=== PATIENT | female | born 1970 | race Caucasian/White ===

== ENCOUNTER 2016-06-17 08:22 | Emergency (ER) | payer BC ==
[2016-06-17 08:57] VITALS: BP 134/59
--- NOTE | 2016-06-17 09:39 | UC ---
Throat Pain/Nasal Kirby HPI - HPI Summary HPI Summary: 46 yo female with sorethroat and fatigue x 2 days Hurts to swallow taking liquids ok no n/v/d no cp or sob - History of Current Complaint Chief Complaint: UCGeneralIllness Stated Complaint: SORE THROAT/EARS Time Seen by Provider: 06/17/16 09:27 Hx Obtained From: Patient Hx Last Menstrual Period: 06/06/16 Onset/Duration: Gradual Onset, Lasting Days Severity: Moderate Pain Intensity: 6 - while swallowing Pain Scale Used: 0-10 Numeric Cough: None - Allergies/Home Medications Allergies/Adverse Reactions: Allergies Allergy/AdvReac Type Severity Reaction Status Date / Time Penicillins Allergy Mild Hives Verified 06/17/16 08:34 Bee Venom Allergy Difficulty Verified 06/17/16 08:34 Breathing Home Medications: Home Medications Acetaminophen [Acetaminophen Extra Stren] 1,000 mg PO Q6H PRN 06/17/16 [History Confirmed 06/17/16] Epinephrine [Epipen 2-Gurwinder] 0.3 mg IM SEE INSTRUCTIONS PRN 06/17/16 [History Confirmed 06/17/16] Ibuprofen TAB* [Advil TAB*] 600 mg PO Q6H PRN 06/17/16 [History Confirmed ] Omeprazole CAP* [Prilosec CAP* 20 MG] 20 mg PO DAILY 06/17/16 [History Confirmed 06/17/16] PMH/Surg Hx/FS Hx/Imm Hx Previously Healthy: Yes - Surgical History Surgical History: Yes Surgery Procedure, Year, and Place: Tubal Ligation, 2009, [place]; D&C, 2008 2009 , [place]; Appendectomy, ~2002, [place] - Family History Known Family History: Positive: Hypertension - Social History Alcohol Use: Rare Substance Use Type: None Smoking Status (MU): Heavy Every Day Tobacco Smoker Type: Cigarettes Amount Used/How Often: 1 PPD Length of Time of Smoking/Using Tobacco: 29 Years Have You Smoked in the Last Year: Yes Household Exposure Type: Cigarettes - Immunization History Most Recent Influenza Vaccination: Not the 2015/2016 Season Review of Systems Constitutional: Fatigue Skin: Negative Eyes: Negative ENT: Sore Throat Respiratory: Negative Cardiovascular: Negative Gastrointestinal: Negative Genitourinary: Negative Motor: Negative Neurovascular: Negative Musculoskeletal: Negative Neurological: Negative Psychological: Negative All Other Systems Reviewed And Are Negative: Yes Physical Exam Triage Information Reviewed: Yes Appearance: Well-Appearing, No Pain Distress, Well-Nourished Vital Signs: Initial Vital Signs Temp 98 F 06/17/16 08:31 Pulse 86 06/17/16 08:31 Resp 16 06/17/16 08:31 BP 134/59 06/17/16 08:31 Pulse Ox 98 06/17/16 08:31 Vital Signs Reviewed: Yes Eyes: Positive: Conjunctiva Clear ENT: Positive: Hearing grossly normal, Pharyngeal erythema, TMs normal, Tonsillar swelling. Negative: Nasal congestion, Nasal drainage, Trismus, Muffled/hoarse voice Dental: Negative: Gross Decay/Caries @, Dental Fracture @, Abscess @ Neck: Positive: Supple, Enlarged Nodes @ - ant cervical Respiratory: Positive: Lungs clear, Normal breath sounds, No respiratory distress Cardiovascular: Positive: RRR, No Murmur. Negative: Tachycardia, Bradycardia Musculoskeletal: Positive: ROM Intact, No Edema Neurological: Positive: Alert Psychological Exam: Normal Skin Exam: Normal Throat Pain/Nasal Course/Dx - Differential Dx/Diagnosis Provider Diagnoses: acute tonsillitis Discharge - Discharge Plan Condition: Stable Disposition: HOME Prescriptions: Cephalexin CAP* [Keflex CAP*] 500 mg PO BID #20 cap Ondansetron TAB* [Zofran Tab*] 4 mg PO Q6H PRN #20 tab PRN Reason: Nausea Patient Education Materials: Tonsillitis (ED) Forms: *Work Release Referrals: Non Staff,Doctor [Primary Care Provider] - Additional Instructions: recheck in 4 days if not better...sooner for worsening symptoms
== END 2016-06-17 09:44 | disposition home or self-care (01) ==
LOC: UCCORT 08:22
DX: J03.90 Acute tonsillitis, unspecified (principal); Z88.0 Allergy status to penicillin; F17.210 Nicotine dependence, cigarettes, uncomplicated
CPT/HCPCS: 99212; G0463

== ENCOUNTER 2017-06-20 08:38 | Emergency (ER) | payer BC ==
[2017-06-20 08:55] VITALS: BP 135/74
--- NOTE | 2017-06-20 09:06 | UC ---
HPI Febrile Illness - HPI Summary HPI Summary: 47 year old female with flu like illness. c/o cough, congestion, body aches, and subjective fever x 2 days. cough x 2 weeks and keeping her up. the body aches started 2 days ago . no SOB. No CP. Non productive cough [ End ] - History of Current Complaint Chief Complaint: UCGeneralIllness Time Seen by Provider: 06/20/17 08:59 Hx Obtained From: Patient Hx Last Menstrual Period: 05/30/17 Timing: Constant Pain Intensity: 6 - Allergy/Home Medications Allergies/Adverse Reactions: Allergies Allergy/AdvReac Type Severity Reaction Status Date / Time bee venom protein (honey bee) Allergy Difficulty Verified 06/20/17 08:51 Breathing Penicillins Allergy Hives Verified 06/20/17 08:51 Home Medications: Home Medications D-Methorphan/PE/Acetaminophen [Day Time Cold-Flu Liquid] 1 liq PO ONCE 06/20/17 [History Confirmed 06/20/17] PMH/Surg Hx/FS Hx/Imm Hx Previously Healthy: Yes - Surgical History Surgical History: Yes Surgery Procedure, Year, and Place: appendectomy,2 D&C,Hystoscopy, tubal ligation - Family History Known Family History: Positive: Hypertension - Social History Occupation: Employed Full-time Alcohol Use: Rare Substance Use Type: None Smoking Status (MU): Light Every Day Tobacco Smoker Type: Cigarettes Amount Used/How Often: 1/2 PPD Length of Time of Smoking/Using Tobacco: ~ 20 plus Have You Smoked in the Last Year: Yes Household Exposure Type: Cigarettes - Immunization History Most Recent Influenza Vaccination: 02/28/13 Review of Systems Constitutional: Fever, Chills, Fatigue ENT: Nasal Discharge Respiratory: Cough Musculoskeletal: Myalgia Is Patient Immunocompromised?: No All Other Systems Reviewed And Are Negative: Yes Physical Exam Triage Information Reviewed: Yes Appearance: Well-Appearing, No Pain Distress, Well-Nourished Vital Signs: Initial Vital Signs Temp 99.8 F 06/20/17 08:50 Pulse 97 06/20/17 08:50 Resp 18 06/20/17 08:50 BP 135/74 06/20/17 08:50 Pulse Ox 98 06/20/17 08:50 Vital Signs Reviewed: Yes Eye Exam: Normal ENT Exam: Normal Dental Exam: Normal Neck exam: Normal Neck: Positive: 1 Respiratory Exam: Normal Cardiovascular Exam: Normal Musculoskeletal Exam: Normal Neurological Exam: Normal Psychological Exam: Normal Skin Exam: Normal Course/Dx - Course Course Of Treatment: neg flu - Febrile Illness Differential Diagnoses: Viremia - Diagnoses Clinic Provider Diagnoses: Viral illness/URI Discharge - Discharge Plan Condition: Good Disposition: HOME Prescriptions: Codeine Phosphate/Guaifenesin [Cheratussin AC Syrup] 5 ml PO QID PRN #120 ml MDD 20 PRN Reason: Cough Patient Education Materials: Upper Respiratory Infection (ED) Referrals: Celestino Tee MD [Primary Care Provider] - 3 Days Additional Instructions: You had a negative flu test today .
== END 2017-06-20 09:27 | disposition home or self-care (01) ==
LOC: UCCORT 08:38
DX: B34.9 Viral infection, unspecified (principal); B06.9 Rubella without complication; Z72.0 Tobacco use
CPT/HCPCS: 87502; 99212; G0463

== ENCOUNTER 2017-07-30 17:32 | Emergency (ER) | payer BC ==
--- NOTE | 2017-07-30 17:46 | UC ---
Throat Pain/Nasal Kirby HPI - HPI Summary HPI Summary: daughter has strep through mother now has body aches, sore throat subjective fever - History of Current Complaint Chief Complaint: UCRespiratory Stated Complaint: EAR PAIN, SORE THROAT Time Seen by Provider: 07/30/17 17:35 Hx Obtained From: Patient Hx Last Menstrual Period: 05/30/17 ?: No Onset/Duration: Sudden Onset, Lasting Days - 1, Still Present Severity: Moderate Pain Intensity: 5 Pain Scale Used: 0-10 Numeric Cough: None Associated Signs & Symptoms: Positive: Sinus Discomfort, Fever - Allergies/Home Medications Allergies/Adverse Reactions: Allergies Allergy/AdvReac Type Severity Reaction Status Date / Time bee venom protein (honey bee) Allergy Difficulty Verified 07/30/17 17:48 Breathing Penicillins Allergy Hives Verified 07/30/17 17:48 PMH/Surg Hx/FS Hx/Imm Hx Previously Healthy: No GI/ History: Gastroesophageal Reflux - Surgical History Surgical History: Yes Surgery Procedure, Year, and Place: appendectomy,2 D&C,Hystoscopy, tubal ligation - Family History Known Family History: Positive: Hypertension - Social History Occupation: Employed Full-time Lives: With Family Alcohol Use: Rare Substance Use Type: None Smoking Status (MU): Light Every Day Tobacco Smoker Type: Cigarettes Amount Used/How Often: 1/2 PPD Length of Time of Smoking/Using Tobacco: ~ 20 plus Have You Smoked in the Last Year: Yes Household Exposure Type: Cigarettes Cessation Counseling: Counseled 3+Min - 10 Min - Immunization History Most Recent Influenza Vaccination: 02/28/13 Review of Systems Constitutional: Chills, Fatigue Skin: Negative Eyes: Negative ENT: Sore Throat Respiratory: Negative Cardiovascular: Negative Gastrointestinal: Negative Genitourinary: Negative Motor: Negative Neurovascular: Negative Musculoskeletal: Arthralgia Neurological: Headache Psychological: Negative Is Patient Immunocompromised?: No All Other Systems Reviewed And Are Negative: Yes Physical Exam Triage Information Reviewed: Yes Appearance: Well-Appearing, No Pain Distress, Well-Nourished Vital Signs Reviewed: Yes Eye Exam: Normal Eyes: Positive: Conjunctiva Clear ENT Exam: Normal ENT: Positive: Normal ENT inspection, Hearing grossly normal, Pharynx normal, TMs normal, Uvula midline. Negative: Nasal congestion, Nasal drainage, Tonsillar swelling, Tonsillar exudate, Trismus, Muffled voice, Hoarse voice, Dental tenderness, Sinus tenderness Dental Exam: Normal Neck exam: Normal Neck: Positive: Supple, Nontender, No Lymphadenopathy Respiratory Exam: Normal Respiratory: Positive: Chest non-tender, Lungs clear, Normal breath sounds, No respiratory distress Cardiovascular Exam: Normal Cardiovascular: Positive: RRR, No Murmur, Pulses Normal, Brisk Capillary Refill Musculoskeletal Exam: Normal Musculoskeletal: Positive: Strength Intact, ROM Intact, No Edema Neurological Exam: Normal Neurological: Positive: Alert, Muscle Tone Normal Psychological Exam: Normal Skin Exam: Normal Diagnostics - Laboratory Diagnostic Studies Completed/Ordered: RST (-), Influenza A/b (-) Throat Pain/Nasal Course/Dx - Course Assessment/Plan: tylenol, ibuprofen, increase fluids, start A/B if sx fail to resolve or worsen - Differential Dx/Diagnosis Provider Diagnoses: Pharyngitis Discharge - Discharge Plan Condition: Stable Disposition: HOME Prescriptions: Azithromycin TAB* [Zithromax TAB (Z-CANDIDA) 250 mg #6 tabs] 2 tab PO .TODAY, THEN 1 DAILY #1 candida Patient Education Materials: Pharyngitis (ED) Referrals: Celestino Tee MD [Primary Care Provider] - If Needed
[2017-07-30 17:48] VITALS: BP 131/71
== END 2017-07-30 18:25 | disposition home or self-care (01) ==
LOC: UCCORT 17:32
DX: J02.9 Acute pharyngitis, unspecified (principal); F17.210 Nicotine dependence, cigarettes, uncomplicated
CPT/HCPCS: 87502; 87651; 99212; G0463

== ENCOUNTER 2018-04-22 08:37 | Emergency (ER) | payer BC ==
[2018-04-22 08:56] VITALS: BP 127/76
[2018-04-22] MEDS ORDERED: Ketorolac INJ* 60 MG/2 ML VIAL IM ONE (09:04)
--- NOTE | 2018-04-22 09:48 | UC ---
Headache HPI - HPI Summary HPI Summary: headache x 5 days pain is sever 8 out of 10, constant, no radiation worse with light, and activates, nothing makes it better + nausea and vomiting . mild abdominal pain - History Of Current Complaint Chief Complaint: UCHeadache Stated Complaint: MULTANI,UPSET STOMACH Time Seen by Provider: 04/22/18 08:52 Hx Obtained From: Patient Hx Last Menstrual Period: n/a ?: No Onset/Duration: Gradual Onset, Lasting Days - 5, Still Present Onset Of Symptoms: Gradual Initially Headache Was: Severe Pain Intensity: 10 Timing: Constant Character: Throbbing Location of Headache: Diffuse Aggravating Factor(s): Exertion, Bright Lights Allevating Factor(s): Nothing Associated Signs And Symptoms: Positive: Nausea, Vomiting. Negative: Dizziness , Seizure, Sinus Pressure, Fever, Neck Pain, Neck Stiffness, Decreased LOC, Visual Changes - Allergies/Home Medications Allergies/Adverse Reactions: Allergies Allergy/AdvReac Type Severity Reaction Status Date / Time bee venom protein (honey bee) Allergy Difficulty Verified 04/22/18 08:53 Breathing Penicillins Allergy Hives Verified 04/22/18 08:53 PMH/Surg Hx/FS Hx/Imm Hx Previously Healthy: Yes - Surgical History Surgical History: Yes Surgery Procedure, Year, and Place: appendectomy,2 D&C,Hystoscopy, tubal ligation - Family History Known Family History: Positive: Hypertension - Social History Alcohol Use: None Substance Use Type: None Smoking Status (MU): Light Every Day Tobacco Smoker Type: Cigarettes Amount Used/How Often: 1/2 PPD Length of Time of Smoking/Using Tobacco: ~ 20 plus Have You Smoked in the Last Year: Yes Household Exposure Type: Cigarettes - Immunization History Most Recent Influenza Vaccination: 02/28/13 Review of Systems All Other Systems Reviewed And Are Negative: Yes Constitutional: Positive: Negative Skin: Positive: Negative Eyes: Positive: Negative, Photophobia ENT: Positive: Negative Respiratory: Positive: Negative Cardiovascular: Positive: Negative Gastrointestinal: Positive: Negative Neurological: Positive: Headache Is Patient Immunocompromised?: No Physical Exam Triage Information Reviewed: Yes Appearance: Pain Distress, Obese Vital Signs: Initial Vital Signs Temp 97.8 F 04/22/18 08:51 Pulse 85 04/22/18 08:51 Resp 16 04/22/18 08:51 BP 127/76 04/22/18 08:51 Pulse Ox 98 04/22/18 08:51 Vital Signs Reviewed: Yes Eyes: Positive: Conjunctiva Clear ENT: Positive: Normal ENT inspection, Hearing grossly normal, Pharynx normal Neck: Positive: Supple, Nontender, No Lymphadenopathy Respiratory: Positive: Chest non-tender, Lungs clear, Normal breath sounds, No respiratory distress Cardiovascular: Positive: RRR, No Murmur, Pulses Normal Skin Exam: Normal UC Physical Exam Vital Signs On Initial Exam: Initial Vitals Temp Pulse Resp BP Pulse Ox 97.8 F 85 16 127/76 98 04/22/18 08:51 04/22/18 08:51 04/22/18 08:51 04/22/18 08:51 04/22/18 08:51 - Neurological Exam Neurological: Normal, Sensory/Motor Intact, Alert, Oriented to Person Place, Time, CN Intact II-III, Reflexes Intact, Normal Gait, Speech Normal Headache Course/Dx - Differential Dx/Diagnosis Provider Diagnosis: Headache Discharge - Sign-Out/Discharge Documenting (check all that apply): Patient Departure All imaging exams completed and their final reports reviewed: No Studies - Discharge Plan Condition: Stable Disposition: HOME Prescriptions: Ketorolac TAB * [Toradol TAB *] 10 mg PO Q8H PRN #15 tab PRN Reason: Headache Ondansetron ODT TAB* [Zofran 4 MG Odt TAB*] 8 mg PO Q8H PRN #9 tab.odt PRN Reason: Nausea/Vomiting Patient Education Materials: Acute Headache (DC) Forms: *Work Release Referrals: Celestino Tee MD [Primary Care Provider] - 5 Days - Billing Disposition and Condition Condition: STABLE Disposition: Home
== END 2018-04-22 09:59 | disposition home or self-care (01) ==
LOC: UCCORT 08:37
DX: R51 Headache (principal); Z88.0 Allergy status to penicillin
CPT/HCPCS: 96372; 99212; G0463; J1885

== ENCOUNTER 2018-05-01 08:16 | Emergency (ER) | payer BC ==
[2018-05-01 08:33] VITALS: BP 136/72
[2018-05-01] MEDS ORDERED: Meclizine TAB* 12.5 MG PO ONE (08:34)
--- NOTE | 2018-05-01 08:47 | UC ---
Dizzy HPI HPI Summary: Pt presents with c/o sudden on set of room spinning, multani, dizziness, nausea that began this morning up on waking. Pt was seen here 9 days ago for "terrible MULTANI" with photophobia, nausea with no known injury or hx of migraines. Pt states that MULTANI previous to today's visit improved but did not completely "go away". - History Of Current Complaint Chief Complaint: UCGeneralIllness Stated Complaint: DIZZINESS, LIGHTHEADED Time Seen by Provider: 05/01/18 08:32 Hx Obtained From: Patient Hx Last Menstrual Period: n/a ?: No Onset/Duration: Sudden Onset - this morning Timing: Constant Severity Initially: Severe Severity Currently: Severe Pain Intensity: 0 Character: Head Spinning, Room Spinning, Weak, Dizzy Aggravating Factor(s): Exertion, Position Change, Change In Head Position Alleviating Factor(s): Nothing Associated Signs And Symptoms: Positive: Nausea - Risk Factors Cardiac Risk Factors: Negative CVA Risk Factor: Negative - Allergies/Home Medications Allergies/Adverse Reactions: Allergies Allergy/AdvReac Type Severity Reaction Status Date / Time bee venom protein (honey bee) Allergy Difficulty Verified 05/01/18 08:25 Breathing Penicillins Allergy Hives Verified 05/01/18 08:25 Home Medications: Home Medications Atenolol TAB* [Tenormin TAB* 25 MG] 25 mg PO DAILY 05/01/18 [History Confirmed 05/01/18] Hydrochlorothiazide TAB* [Hydrodiuril TAB*] 12.5 mg PO DAILY 05/01/18 [History Confirmed 05/01/18] PMH/Surg Hx/FS Hx/Imm Hx Previously Healthy: Yes - Surgical History Surgical History: Yes Surgery Procedure, Year, and Place: appendectomy,2 D&C,Hystoscopy, tubal ligation - Family History Known Family History: Positive: Hypertension - Social History Occupation: Employed Full-time Lives: With Family Alcohol Use: None Substance Use Type: None Smoking Status (MU): Light Every Day Tobacco Smoker Type: Cigarettes Amount Used/How Often: 1/2 PPD Length of Time of Smoking/Using Tobacco: ~ 20 plus Have You Smoked in the Last Year: Yes Household Exposure Type: Cigarettes - Immunization History Most Recent Influenza Vaccination: 02/28/13 Review of Systems All Other Systems Reviewed And Are Negative: Yes Constitutional: Positive: Negative Skin: Positive: Negative Eyes: Positive: Photophobia ENT: Positive: Negative Respiratory: Positive: Negative Cardiovascular: Positive: Negative Gastrointestinal: Positive: Negative Genitourinary: Positive: Negative Motor: Positive: Negative Neurovascular: Positive: Negative Musculoskeletal: Positive: Negative Neurological: Positive: Headache, Other - dizziness, room spinning Psychological: Positive: Negative Is Patient Immunocompromised?: No Physical Exam Triage Information Reviewed: Yes Appearance: Ill-Appearing Vital Signs: Initial Vital Signs Temp 97.3 F 05/01/18 08:26 Pulse 85 05/01/18 08:26 Resp 18 05/01/18 08:26 BP 136/72 05/01/18 08:26 Pulse Ox 97 05/01/18 08:26 Vital Signs Reviewed: Yes Eye Exam: Normal, Other - PERRLA ENT: Positive: TM bulging - bilateral Dental Exam: Normal Neck exam: Normal Respiratory Exam: Normal Cardiovascular Exam: Normal Musculoskeletal Exam: Normal Musculoskeletal: Positive: Strength Intact, ROM Intact, No Edema Neurological: Positive: Alert, Other: - 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 Psychological Exam: Normal Psychological: Positive: Normal Response To Family Skin Exam: Normal Dizzy Course/Dx - Course Course Of Treatment: Pt was recommended to go to ER. Pt verbalized understanding and agreed to plan of care. - Differential Dx/Diagnosis Differential Diagnosis/HQI/PQRI: Benign Paroxysmal Positional Vertigo, CVA, Labyrinthitis Provider Diagnosis: Vertigo - Physician Notifications Discussed Patient Care With: Juancarlos Leavitt MD - accepted pt Time Discussed With Above Provider: 09:45 Instructed by Provider To: MD Will See In ED Discharge - Sign-Out/Discharge Documenting (check all that apply): Patient Departure All imaging exams completed and their final reports reviewed: No Studies - Discharge Plan Condition: Stable Disposition: HOME-RECOMMEND TO ED Patient Education Materials: Dizziness (ED), Serous Otitis Media (ED) Referrals: Celestino Tee MD [Primary Care Provider] - As Soon As Possible Additional Instructions: PLEASE GO DIRECTLY TO THE CLOSEST EMERGENCY ROOM SOON POSSIBLE. - Billing Disposition and Condition Condition: STABLE Disposition: Home-Recommend to ED - Attestation Statements Provider Attestation: Per institutional requirements, I have reviewed the chart, however, I was not consulted specifically or made aware of this patient by the midlevel provider. I did not personally evaluate, interact with , or disposition this patient.
== END 2018-05-01 08:53 | disposition home health service (06) ==
LOC: UCCORT 08:16
DX: R42 Dizziness and giddiness (principal); Z88.0 Allergy status to penicillin
CPT/HCPCS: 99212; G0463

== ENCOUNTER 2019-01-29 14:19 | Emergency (ER) | payer BC ==
[2019-01-29 14:27] VITALS: BP 140/75
[2019-01-29] MEDS ORDERED: Famotidine TAB* 20 MG PO ONE (14:39)
[2019-01-29] MEDS ORDERED: predniSONE TAB* 20 MG PO ONE (14:39)
[2019-01-29] MEDS ORDERED: diPHENhydraMINE PO* 25 MG PO ONE (14:39)
--- NOTE | 2019-01-29 14:40 | UC ---
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-- - History of Current Complaint Chief Complaint: UCAllergicReaction Stated Complaint: BEE STING Time Seen by Provider: 01/29/19 14:31 Hx Obtained From: Patient Hx Last Menstrual Period: 2016 ?: No Onset/Duration: Sudden Onset, Lasting Hours - 1 Pain Intensity: 1 Pain Scale Used: 0-10 Numeric Location: Discrete @ Character: Pain Aggravating Factor(s): Nothing Alleviating Factor(s): Nothing Associated Signs And Symptoms: Positive: Negative - Allergies/Home Medications Allergies/Adverse Reactions: Allergies Allergy/AdvReac Type Severity Reaction Status Date / Time bee venom protein (honey bee) Allergy Difficulty Verified 01/29/19 14:23 Breathing Penicillins Allergy Hives Verified 01/29/19 14:23 Home Medications: Home Medications amLODIPine TAB* [Norvasc 5 mg TAB*] mg PO DAILY 01/29/19 [History] PMH/Surg Hx/FS Hx/Imm Hx Previously Healthy: No Cardiovascular History: Hypertension GI/ History: Gastroesophageal Reflux - Surgical History Surgical History: Yes Surgery Procedure, Year, and Place: appendectomy,2 D&C,Hystoscopy, tubal ligation - Family History Known Family History: Positive: Hypertension - Social History Occupation: Employed Full-time Lives: With Family Alcohol Use: None Substance Use Type: None Smoking Status (MU): Former Smoker Type: Cigarettes Amount Used/How Often: 1/2 PPD Length of Time of Smoking/Using Tobacco: 1/2 PPD x 20+ Years Have You Smoked in the Last Year: Yes When Did the Patient Quit Smoking/Using Tobacco: September 2018 Household Exposure Type: Cigarettes - Immunization History Most Recent Influenza Vaccination: 02/28/13 Review of Systems All Other Systems Reviewed And Are Negative: Yes Constitutional: Positive: Negative Skin: Positive: Other - disrete insect bite right hand and right upper arm no streaking our progressing erythema Eyes: Positive: Negative ENT: Positive: Negative Respiratory: Positive: Negative. Negative: Shortness Of Breath Cardiovascular: Positive: Negative Gastrointestinal: Positive: Negative Genitourinary: Positive: Negative Motor: Positive: Negative Neurovascular: Positive: Negative Musculoskeletal: Positive: Negative Neurological: Positive: Negative Psychological: Positive: Negative Is Patient Immunocompromised?: No Physical Exam Triage Information Reviewed: Yes Appearance: Well-Appearing, No Pain Distress, Well-Nourished Vital Signs: Initial Vital Signs Temp 96.5 F 01/29/19 14:20 Pulse 102 01/29/19 14:20 Resp 18 01/29/19 14:20 BP 140/75 01/29/19 14:20 Pulse Ox 99 01/29/19 14:20 Vital Signs Reviewed: Yes Eye Exam: Normal Eyes: Positive: Conjunctiva Clear ENT Exam: Normal ENT: Positive: Normal ENT inspection, Hearing grossly normal, Pharynx normal. Negative: Trismus, Muffled voice, Hoarse voice Dental Exam: Normal Neck exam: Normal Neck: Positive: Supple, Nontender, No Lymphadenopathy Respiratory Exam: Normal Respiratory: Positive: Chest non-tender, Lungs clear, Normal breath sounds, No respiratory distress, No accessory muscle use Cardiovascular Exam: Normal Cardiovascular: Positive: RRR, No Murmur, Pulses Normal, Brisk Capillary Refill Musculoskeletal Exam: Normal Musculoskeletal: Positive: Strength Intact, ROM Intact, No Edema Neurological Exam: Normal Neurological: Positive: Alert, Muscle Tone Normal Psychological Exam: Normal Skin: Positive: Other - insect sting right hand and right upper arm minimal amount of surrounding erythema Allergic Reaction Course/Dx - Course Course Of Treatment: pepcid, benadryl, prednisone ice packs follow with pcp - Differential Dx/Diagnosis Provider Diagnosis: Hypertension, Insect stings Discharge ED - Sign-Out/Discharge Documenting (check all that apply): Patient Departure All imaging exams completed and their final reports reviewed: No Studies - Discharge Plan Condition: Stable Disposition: HOME Prescriptions: Famotidine TAB 40 MG(NF) [Pepcid TAB 40 MG(NF)] 40 mg PO DAILY #5 tab predniSONE [Prednisone 20 MG TAB] 40 mg PO DAILY 4 Days #8 tablet Patient Education Materials: Diphenhydramine (By mouth), Insect Bite or Sting ( ED), Hypertension (ED), Ice Pack Application (ED) Referrals: Celestino Tee MD [Primary Care Provider] - 2 Weeks - Billing Disposition and Condition Condition: STABLE Disposition: Home - Attestation Statements Provider Attestation: Per institutional requirements, I have reviewed the chart, however, I was not consulted specifically or made aware of this patient by the midlevel provider. I did not personally evaluate, interact with , or disposition this patient.
== END 2019-01-29 15:35 | disposition home or self-care (01) ==
LOC: UCCORT 14:19
DX: I10 Essential (primary) hypertension (principal); T63.441A Toxic effect of venom of bees, accidental (unintentional), initial encounter; Y92.9 Unspecified place or not applicable; Z91.030 Bee allergy status; Z87.891 Personal history of nicotine dependence
CPT/HCPCS: 93005; 99212; A9270-GY; G0463; J7512